=== PATIENT | male | born 1965 | race Caucasian/White ===

== ENCOUNTER 2018-03-10 04:32 | Emergency (ER) | payer MEDICAID ==
[~2018-03-10] VITALS: Ht 172.7 cm; Wt 80.0 kg
[~2018-03-10 04:32] MED LIST: PAIN MEDS
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
[2018-03-10] MEDS ORDERED: L.E.T SOLUTION TP ONE ×2 (05:30→05:32)
--- NOTE | 2018-03-10 07:26 | NUR ---
Recieved report from ULISES Garcia. All questions answered. Assuming care of pt. First contact with pt. Pt resting on gurney sleeping. All safety measures in place. NADN. Call light is within reach. No needs expressed at this time.
[2018-03-10 10:12] VITALS: BP 116/69
[2018-03-10] MEDS ORDERED: IBUPROFEN 200 MG TABLET PO ONE (11:00)
[2018-03-10] MEDS ORDERED: IBUPROFEN 200 MG TABLET ONE (12:45)
--- NOTE | 2018-03-10 12:52 | NUR ---
Medication provided per [facility]. Pt provided discharge instructions and prescriptions. Pt provided crackers, peanut butter, gragham crackers, and water. Pt has steady gait and balance with ambulation.
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
== END 2018-03-10 13:01 | disposition home or self-care (01) ==
LOC: ED 08:40
DX: S01.81XA Laceration without foreign body of other part of head, initial encounter (principal); S33.5XXA Sprain of ligaments of lumbar spine, initial encounter; W01.0XXA Fall on same level from slipping, tripping and stumbling without subsequent striking against object, initial encounter; Y93.89 Activity, other specified; Y92.410 Unspecified street and highway as the place of occurrence of the external cause; Y99.8 Other external cause status
CPT/HCPCS: 12011; 70450; 72110; 99284